=== PATIENT | male | born 2000 | race African-American/Black ===

== ENCOUNTER 2020-09-10 16:59 | Emergency (ER) | payer MEDICAID ==
[~2020-09-10] VITALS: Ht 185.4 cm; Wt 78.0 kg
[2020-09-10] MEDS ORDERED: KETOROLAC 15MG/ML VIAL IV ONE (19:00)
[2020-09-10] MEDS ORDERED: CLINDAMYCIN 600 MG in DEXTROSE 5% WATER 50 ML IV ONE (19:00)
[2020-09-10] MEDS ORDERED: IBUP-2029 MT (19:04)
[2020-09-10] MEDS ORDERED: CLIN300C12 MT (19:04)
[2020-09-10] MEDS ORDERED: CLINDAMYCIN 600MG PREMIX 50 ML IV NR (19:15)
[2020-09-10] MEDS ORDERED: ONDANSETRON HCL 4MG/2ML INJ IV ONE (20:00)
[2020-09-10 20:28] VITALS: BP 133/77
== END 2020-09-10 20:36 | disposition home or self-care (01) ==
LOC: ER 16:59
DX: K12.2 Cellulitis and abscess of mouth (principal); K04.7 Periapical abscess without sinus
CPT/HCPCS: 96365; 96375; 99284; J1885; J2405; J3490; Z7610; J7060